=== PATIENT | male | born 1955 | race Caucasian/White ===

== ENCOUNTER 2022-07-06 12:19 | Emergency (ER) | payer MEDICARE, MEDICAID, SELFPAY ==
[2022-07-06 13:20] VITALS: BP 142/102; PULSE 91; RESP 19; TEMP 37.1; O2SAT 100; BMI 33.9
[2022-07-06 13:29] LABS: UTC Influenza A Antigen Negative (Negative)
[2022-07-06 13:30] LABS: UTC Influenza B Antigen Negative (Negative)
[2022-07-06 13:32] VITALS: BP 142/102; PULSE 91; RESP 19; TEMP 37.1; O2SAT 100
--- NOTE | 2022-07-06 13:37 | EXP.UTC ---
Discharge Plan Referrals Follow up/Referrals: Provider,Referral, MD [Primary Care Provider] - See instructions Activity Restrictions/Add. Instructions Additional Instructions/Restrictions: *Monitor Temp, Over the counter Motrin or Tylenol as directed/as needed Tylenol every 4 hours and Motrin every 6 hours (as long as your family doctor has told you that you can take it) for fever or pain. and straight to ER if unable to lower temp less than 101.0 after medication given *Warm salt water gargles may help to soothe the throat *Throat Lozenges? *Warm fluids like tea with honey may help to soothe the throat? *Sleep elevated *Humidifier/Vaporizer Follow up IMMEDIATELY for new or worsening symptoms or no Noticeable improvement over the next 48-72 hours. 911 for difficulty breathing or swallowing You were tested for today for COVID19 your test result should be back in the next 24-48 hours, you may check your results on the [facility] My Health Portal Make sure to take your Vitamins Vit. 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 by RN): PATIENT C/O BODY ACHES, COUGH, FATIGUE X 3 DAYS HEENT Symptoms (Recalled from RN notes): No Resp Symptoms (Recalled from RN notes): Yes Skin Symptoms (Recalled from RN notes): No MS Symptoms (Recalled from RN notes): No Functional Status (Recalled from RN notes): WNL History of Present Illness Provider Complaint: Patient states he wasnt feeling well for about 3 days States that he is feeling better today but was having flu like symptoms States that he wanted to get checked and tested for Flu and COVID because he felt like he had the flu and didnt want to be around anyone if it was COVID Worker's Comp Is this a Worker's Comp case?: No [facility] Medical History (Updated 07/06/22 @ 13:51 by Jana Fregoso APRN) Hypertension Social History (Updated 07/06/22 @ 13:32 by Nellie Reyes RN) Smoking Status: Unknown if ever smoked alcohol intake: never current occupational status: disabled Travel in the last 8 weeks: None ROS Obtained: Yes All systems reviewed & no additional complaints except as documented and Yes Systems reviewed as appropriate & no additional complaints except as documented Constitutional Constitutional: Reports system reviewed and no additional complaints, except as documented, Reports as per HPI, Reports body ache, Reports chills and Reports headache(s) ENT Ears, Nose, Mouth, and Throat: Reports system reviewed and no additional complaints, except as documented, Reports as per HPI and Reports headache(s) Cardiovascular Cardiovascular: Reports system reviewed and no additional complaints, except as documented and Reports as per HPI Respiratory Respiratory: Reports system reviewed and no additional complaints, except as documented and Reports as per HPI Neurologic Neurologic: Reports headache(s) Physical Exam General General appearance: alert and in no apparent distress ENT ENT exam: Present normal exam, normal oropharynx and mucous membranes moist Respiratory Respiratory exam: Present normal lung sounds bilaterally; Absent respiratory distress or wheezes Cardiovascular Cardiovascular exam: Present regular rate, normal rhythm and normal heart sounds Neurological Exam Neurological exam: Present alert, oriented X3 and normal gait Medical Decision Making Tray Inquiry Pt receiving controlled substance: No Tray was queried for this patient: No Vital Signs: 07/06/22 13:20 07/06/22 13:32 Temperature 98.7 F 98.7 F Temperature Source Oral Pulse Rate 91 H Pulse Ra
== END 2022-07-06 13:59 | disposition home or self-care (01) ==
PROVIDERS: Emergency Provider Nurse Practitioner
DX: U07.1 COVID-19 (principal)
CPT/HCPCS: 87804; 99212; C9803; G0463; U0003; U0005